=== PATIENT | female | born 1935 | race Caucasian/White ===

== ENCOUNTER 2018-06-08 16:16 | Emergency (ER) | payer MEDICARE ==
[2018-06-08] MEDS ORDERED: Lidocaine 4% Cream 5 GM TUBE w/ Tegaderm ONE (16:31)
--- NOTE | 2018-06-08 17:01 | RAD ---
RIGHT HAND THREE VIEWS: History: Injury to hand. Trauma. Laceration to dorsal hand. FINDINGS: Carpals appear intact. Metacarpals and phalanges appear intact. There are degenerative changes seen a t the DIP joints. There is narrowing and mild DJD at the MCP joints. There is deformity of the distal radius which appears consistent with an old radial fracture. IMPRESSION: There are chronic osseous findings as described. No acute fracture identified. POS: [facility]
[2018-06-08] MEDS ORDERED: Lidocaine 1% 20 ML MDV ONE (17:08)
[2018-06-08] MEDS ORDERED: Bacitracin Zinc 1 Packet ONE (17:12)
[2018-06-08] MEDS ORDERED: Ondansetron ODT 4 MG TAB ONE (17:23)
[2018-06-08] MEDS ORDERED: Acetaminophen 500 MG TAB ONE (17:46)
== END 2018-06-08 17:50 | disposition home or self-care (01) ==
LOC: SCSER 16:16
DX: S61.411A Laceration without foreign body of right hand, initial encounter (principal); E78.5 Hyperlipidemia, unspecified; I10 Essential (primary) hypertension; W18.30XA Fall on same level, unspecified, initial encounter
CPT/HCPCS: 12004; J2001; Q0162

== ENCOUNTER 2018-06-23 16:44 | Emergency (ER) | payer MEDICARE | END 2018-06-23 16:55 | disposition home or self-care (01) | LOC: SCSER 16:44 | DX: S61.412D Laceration without foreign body of left hand, subsequent encounter (principal); E78.5 Hyperlipidemia, unspecified; I10 Essential (primary) hypertension ==

== ENCOUNTER 2018-08-27 17:07 | Emergency (ER) | payer MEDICARE ==
[2018-08-27] MEDS ORDERED: Bacitracin Zinc 1 Packet ONE (17:38)
--- NOTE | 2018-08-27 18:24 | RAD ---
LEFT HAND THREE VIEWS: 08/27/18 HISTORY: Pain. Injury. Skin tear near the second dorsal metacarpophalangeal joint. Swelling. FINDINGS: There is dorsal soft tissue swelling. There appears to be remote injury involving the distal radius. Acute fractures of the left hand are not appreciated. 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 Diffuse bone demineralization. IMPRESSION: 1. Chronic changes as described above. 2. Dorsal soft tissue swelling. No evidence of fracture. POS: [facility]
== END 2018-08-27 17:58 | disposition home or self-care (01) ==
LOC: SCSER 17:07
DX: S61.412A Laceration without foreign body of left hand, initial encounter (principal); J45.909 Unspecified asthma, uncomplicated; E78.5 Hyperlipidemia, unspecified; I10 Essential (primary) hypertension; W22.8XXA Striking against or struck by other objects, initial encounter